=== PATIENT | female | born 1940 | race Caucasian/White ===

== ENCOUNTER 2017-09-23 08:22 | Inpatient (IN) | payer MEDICARE, MEDICAID ==
[~2017-09-23] VITALS: Ht 162.6 cm; Wt 98.5 kg
[~2017-09-23 08:22] MED LIST: ACET325T14 PO; ASPI-496 PO; ASPI325T17 PO; ATOR10TA PO; BIMA2.5D EACHEYE; BISA10SU2 PR; CALC1TAB26 PO; CELE200C PO; CITA20TA9 PO; DOCU100C33 PO; DORZ10DR7 EACHEYE; FURO-93 PO; FURO20TA3 PO; HYDR-3237 PO; IBUP-1484 PO; MAGN400O7 PO; OMEG1CAP23 PO; OMEP-110 PO; OXYC-302 PO; POTA10TA PO; POTA10TA11 PO; SENN1TAB94 PO; VIT1TABL32 PO
[2017-09-23] MEDS ORDERED: ACET650S21 PO (08:52)
[2017-09-23 09:55] LABS: MEAN CORPUSCULAR HEMOGLOBIN 24.1 pg (27.0-34.8); MEAN CORPUSCULAR HGB CONC 30.6 g/dL (32.4-35.8); MEAN CORPUSCULAR VOLUME 78.9 fL (80-100); MEAN PLATELET VOLUME 8.9 fL (7.4-10.4); PLATELET COUNT 215 x10^3/uL (130-400); RED BLOOD COUNT 4.84 x10^6/uL (3.82-5.3); RED CELL DISTRIBUTION WIDTH 18.6 % (9.6-15.2)
[2017-09-23 09:56] LABS: ALANINE AMINOTRANSFERASE 14 U/L (12-78); ALBUMIN 3.1 g/dL (3.4-5.0); ANION GAP 3 mmol/L (5-15); CALCIUM 8.7 mg/dL (8.5-10.1); CHLORIDE 104 mmol/L (98-107); CREATININE 0.77 mg/dL (0.55-1.02)
[2017-09-23 09:59] LABS: ALKALINE PHOSPHATASE 79 U/L (45-117); BILIRUBIN,TOTAL 0.6 mg/dL (0.2-1.0); TOTAL PROTEIN 6.4 g/dL (6.4-8.2)
[2017-09-23 10:12] LABS: BASOPHILS # (AUTO) 0.03 x10^3/uL (0-0.1); BASOPHILS % (AUTO) 0 % (0-1); EOSINOPHILS # (AUTO) 0.11 x10^3/uL (0-0.4); EOSINOPHILS % (AUTO) 2 % (1-7); LYMPHOCYTES # (AUTO) 1.57 x10^3/uL (1-3.4); LYMPHOCYTES % (AUTO) 22 % (22-44); MD SCAN; MONOCYTES # (AUTO) 0.86 x10^3/uL (0.2-0.8); MONOCYTES % (AUTO) 12 % (2-9); NEUTROPHILS # (AUTO) 4.64 x10^3/uL (1.8-6.8); NEUTROPHILS % (AUTO) 65 % (42-75)
[2017-09-23 10:17] LABS: CULTURE INDICATED? YES; MICROSCOPIC INDICATED
[2017-09-23] MEDS ORDERED: CEFTRIAXONE PMX 1GM/50ML 50 ML IVPB ONE (10:30)
[2017-09-23] MEDS ORDERED: CEFTRIAXONE PMX 1GM/50ML 50 ML ONE (10:52)
[2017-09-23 11:50] VITALS: BP 138/84
[2017-09-23] MEDS ORDERED: LABETALOL 5MG/ML, 20ML IVPush PRN (13:00)
[2017-09-23] MEDS ORDERED: ACETAMINOPHEN 325 MG TABLET PO PRN (13:00)
[2017-09-23] MEDS ORDERED: BISACODYL 10 MG SUPP PR PRN (13:00)
[2017-09-23] MEDS ORDERED: SODIUM CHLORIDE 0.9% 1,000 ML IV SCH (13:00)
[2017-09-23] MEDS ORDERED: ONDANSETRON 2MG/ML, 2ML IVPush PRN (13:00)
[2017-09-23] MEDS ORDERED: DOCUSATE 100 MG CAPSULE PO PRN (13:00)
[2017-09-23] MEDS ORDERED: POLYETHYLENE GLYCOL 17 GM PACKET PO PRN (13:00)
[2017-09-23] MEDS ORDERED: GUAIFENESIN/DM 200-20MG, 10ML UDC PO PRN (13:00)
[2017-09-23] MEDS ORDERED: ENALAPRILAT 1.25 MG/ML, 2ML IVPush PRN (13:00)
[2017-09-23] MEDS: ENOXAPARIN 40 MG/0.4 ML SQ SCH (13:00)
[2017-09-23 13:33] LABS: HEMOGLOBIN A1C 6.7 % (4.2-6.3)
[2017-09-23 14:24] VITALS: BP 113/71
[2017-09-23] MEDS: CEFTRIAXONE PMX 1GM/50ML 50 ML IV SCH (15:09)
[2017-09-23] MEDS ORDERED: ALBUTEROL/IPRATROPIUM 2.5MG/0.5MG, 3 ML NPPB PRN (16:30)
[2017-09-23] MEDS: AZITHROMYCIN 500 MG in SODIUM CHLORIDE 0.9% 250 ML IV SCH (16:40)
[2017-09-23 18:51] VITALS: BP 99/64
[2017-09-24 00:44] VITALS: BP 110/73
[2017-09-24 05:36] LABS: INTERNATIONAL NORMALIZED RATIO 1.13 (0.93-1.1); PROTHROMBIN TIME 11.6 Seconds (9.6-11.5)
[2017-09-24 06:00] LABS: MEAN CORPUSCULAR HEMOGLOBIN 24.2 pg (27.0-34.8); MEAN CORPUSCULAR HGB CONC 30.6 g/dL (32.4-35.8); MEAN CORPUSCULAR VOLUME 79.2 fL (80-100); MEAN PLATELET VOLUME 9.1 fL (7.4-10.4); PLATELET COUNT 195 x10^3/uL (130-400); RED BLOOD COUNT 4.77 x10^6/uL (3.82-5.3); RED CELL DISTRIBUTION WIDTH 18.9 % (9.6-15.2)
[2017-09-24 06:20] LABS: CHLORIDE 105 mmol/L (98-107)
[2017-09-24 06:35] LABS: ALANINE AMINOTRANSFERASE 16 U/L (12-78); ALBUMIN 2.8 g/dL (3.4-5.0); ALKALINE PHOSPHATASE 69 U/L (45-117); ANION GAP 4 mmol/L (5-15); BILIRUBIN,TOTAL 0.5 mg/dL (0.2-1.0); CREATININE 0.52 mg/dL (0.55-1.02)
[2017-09-24 06:48] LABS: BASOPHILS # (AUTO) 0.03 x10^3/uL (0-0.1); BASOPHILS % (AUTO) 1 % (0-1); EOSINOPHILS # (AUTO) 0.19 x10^3/uL (0-0.4); EOSINOPHILS % (AUTO) 3 % (1-7); LYMPHOCYTES # (AUTO) 1.79 x10^3/uL (1-3.4); LYMPHOCYTES % (AUTO) 26 % (22-44); MD MORPH REVIEW ONLY; MONOCYTES # (AUTO) 0.71 x10^3/uL (0.2-0.8); MONOCYTES % (AUTO) 10 % (2-9); NEUTROPHILS # (AUTO) 4.29 x10^3/uL (1.8-6.8); NEUTROPHILS % (AUTO) 61 % (42-75)
[2017-09-24 06:50] LABS: ANISOCYTOSIS 1+; HYPOCHROMIA 1+; MICROCYTOSIS 1+; OVALOCYTES 1+
[2017-09-24 06:51] LABS: <PLATELET ESTIMATE> ADEQUATE; LARGE PLATELETS 1+
[2017-09-24 07:18] VITALS: BP 107/69
[2017-09-24] MEDS: SODIUM CHLORIDE 0.9% 1,000 ML IV SCH (08:30)
[2017-09-24 12:42] VITALS: BP 121/74
[2017-09-24] MEDS: ENOXAPARIN 40 MG/0.4 ML SQ SCH (13:00)
[2017-09-24] MEDS: CEFTRIAXONE PMX 1GM/50ML 50 ML IV SCH (13:41)
[2017-09-24] MEDS: METOPROLOL TARTRATE 25 MG TABLET PO SCH (18:00)
[2017-09-24] MEDS: AZITHROMYCIN 500 MG in SODIUM CHLORIDE 0.9% 250 ML IV SCH (18:56)
[2017-09-24 20:00] VITALS: BP 112/67
[2017-09-25] MEDS ORDERED: DIPHENHYDRAMINE 50 MG/ML, 1ML IVPush ONE (00:30)
[2017-09-25] MEDS: SODIUM CHLORIDE 0.9% 1,000 ML IV SCH (00:44)
[2017-09-25 00:49] VITALS: BP 114/73
[2017-09-25 04:52] LABS: ANION GAP 3 mmol/L (5-15); CALCIUM 8.1 mg/dL (8.5-10.1); CHLORIDE 107 mmol/L (98-107); CREATININE 0.49 mg/dL (0.55-1.02)
[2017-09-25] MEDS: ASPIRIN 81 MG TABLET EC PO SCH (05:48)
[2017-09-25] MEDS: METOPROLOL TARTRATE 25 MG TABLET PO SCH ×2 (05:49→17:37)
[2017-09-25 07:47] VITALS: BP 135/75
[2017-09-25 09:26] LABS: THYROID STIMULATING HORMONE 0.197 mIU/L (0.358-3.740)
[2017-09-25 09:37] LABS: FOLATE LEVEL > 20.0 ng/mL (3.1-17.5)
[2017-09-25] MEDS: CEFTRIAXONE PMX 1GM/50ML 50 ML IV SCH (13:27)
[2017-09-25 13:31] VITALS: BP 110/59
[2017-09-25] MEDS: ENOXAPARIN 40 MG/0.4 ML SQ SCH (13:45)
[2017-09-25] MEDS: AZITHROMYCIN 500 MG in SODIUM CHLORIDE 0.9% 250 ML IV SCH (18:43)
[2017-09-25 20:00] VITALS: BP 114/75
[2017-09-26 01:24] VITALS: BP 126/78
[2017-09-26] MEDS: ASPIRIN 81 MG TABLET EC PO SCH (05:35)
[2017-09-26] MEDS: METOPROLOL TARTRATE 25 MG TABLET PO SCH ×2 (05:35→18:00)
[2017-09-26 06:46] LABS: ANION GAP 3 mmol/L (5-15); CALCIUM 8.7 mg/dL (8.5-10.1); CHLORIDE 106 mmol/L (98-107); CREATININE 0.45 mg/dL (0.55-1.02)
[2017-09-26 07:14] VITALS: BP 129/88
[2017-09-26 13:13] VITALS: BP 130/77
[2017-09-26] MEDS: ENOXAPARIN 40 MG/0.4 ML SQ SCH (14:02)
[2017-09-26] MEDS: CEFTRIAXONE PMX 1GM/50ML 50 ML IV SCH (15:10)
[2017-09-26] MEDS: AZITHROMYCIN 500 MG in SODIUM CHLORIDE 0.9% 250 ML IV SCH (18:11)
[2017-09-26 20:00] VITALS: BP 125/63
[2017-09-27 02:00] VITALS: BP 116/72
[2017-09-27 07:40] VITALS: BP 121/68
[2017-09-27] MEDS: ASPIRIN 81 MG TABLET EC PO SCH (09:00)
[2017-09-27] MEDS: METOPROLOL TARTRATE 25 MG TABLET PO SCH ×2 (09:00→18:00)
[2017-09-27 13:20] VITALS: BP 123/82
[2017-09-27] MEDS: ENOXAPARIN 40 MG/0.4 ML SQ SCH (17:03)
[2017-09-27] MEDS: CEFTRIAXONE PMX 1GM/50ML 50 ML IV SCH (17:03)
[2017-09-27] MEDS: AZITHROMYCIN 500 MG in SODIUM CHLORIDE 0.9% 250 ML IV SCH (18:46)
[2017-09-27] MEDS ORDERED: METOPROLOL 1 MG/ML, 5ML IVPush ONE (19:00)
[2017-09-27 20:00] VITALS: BP 116/77
[2017-09-28 02:00] VITALS: BP 128/83
[2017-09-28] MEDS: ASPIRIN 81 MG TABLET EC PO SCH (05:55)
[2017-09-28] MEDS: METOPROLOL TARTRATE 25 MG TABLET PO SCH ×2 (05:55→18:00)
[2017-09-28 07:36] VITALS: BP 132/82
[2017-09-28] MEDS ORDERED: BENZOCAINE 20% SPRAY 0.5ML ONE (13:51)
[2017-09-28] MEDS ORDERED: LIDOCAINE GEL 2%, 5ML ONE (13:51)
[2017-09-28] MEDS: ENOXAPARIN 40 MG/0.4 ML SQ SCH (14:08)
[2017-09-28] MEDS ORDERED: LORazepam 2 MG/ML, 1ML IVPush ONE (17:00)
[2017-09-28 19:07] VITALS: BP 146/84
[2017-09-28] MEDS: CEFTRIAXONE PMX 1GM/50ML 50 ML IV SCH (20:44)
[2017-09-28] MEDS: ATORVASTATIN 10 MG TABLET PO/NG SCH (20:44)
[2017-09-29 00:55] VITALS: BP 147/94
[2017-09-29 05:15] LABS: MEAN CORPUSCULAR HEMOGLOBIN 24.1 pg (27.0-34.8); MEAN CORPUSCULAR HGB CONC 30.4 g/dL (32.4-35.8); MEAN CORPUSCULAR VOLUME 79.3 fL (80-100); PLATELET COUNT 165 x10^3/uL (130-400); RED BLOOD COUNT 4.76 x10^6/uL (3.82-5.3); RED CELL DISTRIBUTION WIDTH 18.6 % (9.6-15.2)
[2017-09-29] MEDS: ASPIRIN 81 MG TABLET EC PO SCH (05:17)
[2017-09-29] MEDS: METOPROLOL TARTRATE 25 MG TABLET PO SCH ×2 (05:17→17:43)
[2017-09-29 05:22] LABS: ANION GAP 0 mmol/L (5-15); CALCIUM 9.1 mg/dL (8.5-10.1); CHLORIDE 106 mmol/L (98-107); CREATININE 0.38 mg/dL (0.55-1.02)
[2017-09-29 06:14] LABS: BASOPHILS # (AUTO) 0.04 x10^3/uL (0-0.1); BASOPHILS % (AUTO) 1 % (0-1); EOSINOPHILS # (AUTO) 0.03 x10^3/uL (0-0.4); EOSINOPHILS % (AUTO) 1 % (1-7); LYMPHOCYTES # (AUTO) 1.25 x10^3/uL (1-3.4); LYMPHOCYTES % (AUTO) 20 % (22-44); MD MORPH REVIEW ONLY; MONOCYTES # (AUTO) 0.78 x10^3/uL (0.2-0.8); MONOCYTES % (AUTO) 13 % (2-9); NEUTROPHILS # (AUTO) 4.09 x10^3/uL (1.8-6.8); NEUTROPHILS % (AUTO) 66 % (42-75)
[2017-09-29 06:15] LABS: ANISOCYTOSIS 1+; HYPOCHROMIA 1+; MICROCYTOSIS 1+; OVALOCYTES 1+
[2017-09-29 06:16] LABS: <PLATELET ESTIMATE> ADEQUATE; LARGE PLATELETS 1+
[2017-09-29 08:58] VITALS: BP 140/89
[2017-09-29 10:25] VITALS: BP 141/89
[2017-09-29] MEDS: ENOXAPARIN 40 MG/0.4 ML SQ SCH (13:49)
[2017-09-29 14:03] VITALS: BP 143/91
[2017-09-29 19:42] VITALS: BP 131/91
[2017-09-29] MEDS: CEFTRIAXONE PMX 1GM/50ML 50 ML IV SCH (21:07)
[2017-09-29] MEDS: ATORVASTATIN 10 MG TABLET PO/NG SCH (21:13)
[2017-09-30 02:15] VITALS: BP 133/84
[2017-09-30 04:56] LABS: ANION GAP 4 mmol/L (5-15); CALCIUM 8.9 mg/dL (8.5-10.1); CHLORIDE 104 mmol/L (98-107)
[2017-09-30 04:57] LABS: CREATININE 0.28 mg/dL (0.55-1.02); MEAN CORPUSCULAR HEMOGLOBIN 23.9 pg (27.0-34.8); MEAN CORPUSCULAR VOLUME 80.2 fL (80-100); MEAN PLATELET VOLUME 9.3 fL (7.4-10.4); PLATELET COUNT 159 x10^3/uL (130-400); RED BLOOD COUNT 4.64 x10^6/uL (3.82-5.3); RED CELL DISTRIBUTION WIDTH 19.3 % (9.6-15.2)
[2017-09-30 05:08] LABS: MEAN CORPUSCULAR HGB CONC 29.8 g/dL (32.4-35.8)
[2017-09-30] MEDS: ASPIRIN 81 MG TABLET EC PO SCH (05:13)
[2017-09-30] MEDS: METOPROLOL TARTRATE 25 MG TABLET PO SCH ×3 (05:13→23:05)
[2017-09-30 06:01] LABS: BASOPHILS # (AUTO) 0.02 x10^3/uL (0-0.1); BASOPHILS % (AUTO) 0 % (0-1); EOSINOPHILS # (AUTO) 0.09 x10^3/uL (0-0.4); EOSINOPHILS % (AUTO) 1 % (1-7); LYMPHOCYTES # (AUTO) 1.39 x10^3/uL (1-3.4); LYMPHOCYTES % (AUTO) 21 % (22-44); MD SCAN; MONOCYTES # (AUTO) 0.87 x10^3/uL (0.2-0.8); MONOCYTES % (AUTO) 13 % (2-9); NEUTROPHILS # (AUTO) 4.19 x10^3/uL (1.8-6.8); NEUTROPHILS % (AUTO) 64 % (42-75)
[2017-09-30 06:48] VITALS: BP 126/84
[2017-09-30 12:40] VITALS: BP 133/89
[2017-09-30] MEDS: ENOXAPARIN 40 MG/0.4 ML SQ SCH (14:39)
[2017-09-30 20:35] VITALS: BP 115/74
[2017-09-30] MEDS: CEFTRIAXONE PMX 1GM/50ML 50 ML IV SCH (21:15)
[2017-09-30 23:02] VITALS: BP 141/90
[2017-09-30] MEDS: ATORVASTATIN 10 MG TABLET PO/NG SCH (23:05)
[2017-10-01 03:31] VITALS: BP 107/72
[2017-10-01 05:06] LABS: ANION GAP 3 mmol/L (5-15); CALCIUM 9.1 mg/dL (8.5-10.1); CHLORIDE 103 mmol/L (98-107); CREATININE 0.31 mg/dL (0.55-1.02)
[2017-10-01] MEDS: ASPIRIN 81 MG TABLET EC PO SCH (06:18)
[2017-10-01] MEDS: METOPROLOL TARTRATE 25 MG TABLET PO SCH ×3 (06:19→21:31)
[2017-10-01 07:10] VITALS: BP 114/77
[2017-10-01] MEDS: ALBUTEROL/IPRATROPIUM 2.5MG/0.5MG, 3 ML IPPB SCH ×4 (07:44→21:05)
[2017-10-01] MEDS ORDERED: FUROSEMIDE 40 MG/4 ML IV ONE (09:00)
[2017-10-01] MEDS ORDERED: FUROSEMIDE 20 MG/2 ML IV ONE (09:30)
[2017-10-01 14:30] VITALS: BP 141/79
[2017-10-01] MEDS: ENOXAPARIN 40 MG/0.4 ML SQ SCH (14:32)
[2017-10-01 19:08] VITALS: BP 147/84
[2017-10-01 21:28] VITALS: BP 142/96
[2017-10-01] MEDS: CEFTRIAXONE PMX 1GM/50ML 50 ML IV SCH (21:30)
[2017-10-01] MEDS: ATORVASTATIN 10 MG TABLET PO/NG SCH (21:30)
[2017-10-02 02:20] VITALS: BP 127/80
[2017-10-02 05:16] LABS: CALCIUM 9.3 mg/dL (8.5-10.1); CHLORIDE 99 mmol/L (98-107); CREATININE 0.33 mg/dL (0.55-1.02)
[2017-10-02] MEDS: ASPIRIN 81 MG TABLET CHEW PO SCH (05:23)
[2017-10-02 05:34] LABS: ANION GAP 2 mmol/L (5-15)
[2017-10-02 06:35] VITALS: BP 152/98
[2017-10-02 06:39] LABS: MEAN CORPUSCULAR HEMOGLOBIN 24.4 pg (27.0-34.8); MEAN CORPUSCULAR HGB CONC 30.7 g/dL (32.4-35.8); MEAN CORPUSCULAR VOLUME 79.3 fL (80-100); MEAN PLATELET VOLUME 9.7 fL (7.4-10.4); PLATELET COUNT 156 x10^3/uL (130-400); RED BLOOD COUNT 5.17 x10^6/uL (3.82-5.3); RED CELL DISTRIBUTION WIDTH 18.7 % (9.6-15.2)
[2017-10-02 06:42] LABS: BASOPHILS # (AUTO) 0.04 x10^3/uL (0-0.1); BASOPHILS % (AUTO) 1 % (0-1); EOSINOPHILS # (AUTO) 0.13 x10^3/uL (0-0.4); EOSINOPHILS % (AUTO) 2 % (1-7); LYMPHOCYTES % (AUTO) 18 % (22-44); MD SCAN; MONOCYTES # (AUTO) 0.77 x10^3/uL (0.2-0.8); MONOCYTES % (AUTO) 10 % (2-9); NEUTROPHILS # (AUTO) 5.67 x10^3/uL (1.8-6.8); NEUTROPHILS % (AUTO) 71 % (42-75)
[2017-10-02] MEDS: ALBUTEROL/IPRATROPIUM 2.5MG/0.5MG, 3 ML IPPB SCH ×4 (07:20→19:30)
[2017-10-02] MEDS: METOPROLOL TARTRATE 25 MG TABLET PO SCH ×2 (08:26→21:13)
[2017-10-02 12:00] VITALS: BP 140/87
[2017-10-02] MEDS: ENOXAPARIN 40 MG/0.4 ML SQ SCH (14:52)
[2017-10-02 18:46] VITALS: BP 167/113
[2017-10-02 21:08] VITALS: BP 147/87
[2017-10-02] MEDS: CEFTRIAXONE PMX 1GM/50ML 50 ML IV SCH (21:13)
[2017-10-02] MEDS: ATORVASTATIN 10 MG TABLET PO/NG SCH (21:13)
[2017-10-03 00:26] VITALS: BP 116/73
[2017-10-03 05:39] LABS: BASOPHILS # (AUTO) 0.03 x10^3/uL (0-0.1); BASOPHILS % (AUTO) 1 % (0-1); EOSINOPHILS # (AUTO) 0.08 x10^3/uL (0-0.4); EOSINOPHILS % (AUTO) 1 % (1-7); LYMPHOCYTES # (AUTO) 1.05 x10^3/uL (1-3.4); LYMPHOCYTES % (AUTO) 16 % (22-44); MD NO; MEAN CORPUSCULAR HEMOGLOBIN 24.4 pg (27.0-34.8); MEAN CORPUSCULAR HGB CONC 30.8 g/dL (32.4-35.8); MEAN CORPUSCULAR VOLUME 79.1 fL (80-100); MEAN PLATELET VOLUME 10.1 fL (7.4-10.4); MONOCYTES # (AUTO) 0.62 x10^3/uL (0.2-0.8); MONOCYTES % (AUTO) 9 % (2-9); NEUTROPHILS # (AUTO) 4.87 x10^3/uL (1.8-6.8); NEUTROPHILS % (AUTO) 73 % (42-75); PLATELET COUNT 142 x10^3/uL (130-400); RED BLOOD COUNT 4.59 x10^6/uL (3.82-5.3); RED CELL DISTRIBUTION WIDTH 19.3 % (9.6-15.2)
[2017-10-03] MEDS: ASPIRIN 81 MG TABLET CHEW PO SCH (05:43)
[2017-10-03 05:52] LABS: ANION GAP 4 mmol/L (5-15); CALCIUM 8.9 mg/dL (8.5-10.1); CHLORIDE 100 mmol/L (98-107); CREATININE 0.31 mg/dL (0.55-1.02)
[2017-10-03] MEDS: ALBUTEROL/IPRATROPIUM 2.5MG/0.5MG, 3 ML IPPB SCH ×4 (07:25→19:52)
[2017-10-03 08:00] VITALS: BP 95/65
[2017-10-03] MEDS: METOPROLOL TARTRATE 50 MG TABLET PO SCH ×2 (08:53→21:43)
[2017-10-03 13:13] VITALS: BP 119/82
[2017-10-03] MEDS: ENOXAPARIN 40 MG/0.4 ML SQ SCH (14:34)
[2017-10-03 21:18] VITALS: BP 122/78
[2017-10-03] MEDS: CEFTRIAXONE PMX 1GM/50ML 50 ML IV SCH (21:37)
[2017-10-03] MEDS: ATORVASTATIN 10 MG TABLET PO/NG SCH (21:43)
[2017-10-04 02:27] VITALS: BP 147/79
[2017-10-04 05:45] LABS: CHLORIDE 100 mmol/L (98-107)
[2017-10-04] MEDS: ASPIRIN 81 MG TABLET CHEW PO SCH (06:03)
[2017-10-04 06:12] LABS: ANION GAP 5 mmol/L (5-15); CALCIUM 9.3 mg/dL (8.5-10.1); CREATININE 0.35 mg/dL (0.55-1.02)
[2017-10-04] MEDS: ALBUTEROL/IPRATROPIUM 2.5MG/0.5MG, 3 ML IPPB SCH ×4 (07:17→19:30)
[2017-10-04 08:02] VITALS: BP 148/94
[2017-10-04] MEDS: METOPROLOL TARTRATE 50 MG TABLET PO SCH ×2 (08:52→21:22)
[2017-10-04 14:43] VITALS: BP 117/80
[2017-10-04] MEDS: ENOXAPARIN 40 MG/0.4 ML SQ SCH (14:58)
[2017-10-04 20:00] VITALS: BP 128/86
[2017-10-04] MEDS: ATORVASTATIN 10 MG TABLET PO/NG SCH (21:22)
[2017-10-05 01:54] VITALS: BP 130/85
[2017-10-05 05:02] LABS: ANION GAP 1 mmol/L (5-15); CALCIUM 8.9 mg/dL (8.5-10.1); CHLORIDE 102 mmol/L (98-107)
[2017-10-05 05:03] LABS: CREATININE 0.35 mg/dL (0.55-1.02)
[2017-10-05] MEDS: ALBUTEROL/IPRATROPIUM 2.5MG/0.5MG, 3 ML IPPB SCH ×4 (07:00→18:54)
[2017-10-05 07:50] VITALS: BP 143/94
[2017-10-05] MEDS: ASPIRIN 81 MG TABLET CHEW PO SCH (09:42)
[2017-10-05] MEDS: METOPROLOL TARTRATE 50 MG TABLET PO SCH ×2 (09:42→21:08)
[2017-10-05 13:39] VITALS: BP 142/86
[2017-10-05] MEDS: ENOXAPARIN 40 MG/0.4 ML SQ SCH (15:35)
[2017-10-05 20:22] VITALS: BP 141/91
[2017-10-05] MEDS: ATORVASTATIN 10 MG TABLET PO/NG SCH (21:09)
[2017-10-06 02:07] VITALS: BP 148/95
[2017-10-06 05:20] LABS: ANION GAP 2 mmol/L (5-15); CALCIUM 8.8 mg/dL (8.5-10.1); CHLORIDE 103 mmol/L (98-107); CREATININE 0.34 mg/dL (0.55-1.02)
[2017-10-06] MEDS: ASPIRIN 81 MG TABLET CHEW PO SCH (06:08)
[2017-10-06] MEDS: ALBUTEROL/IPRATROPIUM 2.5MG/0.5MG, 3 ML IPPB SCH ×4 (07:00→19:46)
[2017-10-06 07:42] VITALS: BP 167/94
[2017-10-06] MEDS: METOPROLOL TARTRATE 50 MG TABLET PO SCH ×2 (09:30→21:02)
[2017-10-06] MEDS: DEXTROSE 5% 1,000 ML IV SCH ×2 (09:31→22:20)
[2017-10-06] MEDS: ENOXAPARIN 40 MG/0.4 ML SQ SCH (13:39)
[2017-10-06 14:29] VITALS: BP 122/77
[2017-10-06 19:59] VITALS: BP 136/89
[2017-10-06] MEDS: ATORVASTATIN 10 MG TABLET PO/NG SCH (21:02)
[2017-10-07 02:22] VITALS: BP 126/85
[2017-10-07 05:44] LABS: ANION GAP 3 mmol/L (5-15); CALCIUM 8.8 mg/dL (8.5-10.1); CHLORIDE 100 mmol/L (98-107); CREATININE 0.31 mg/dL (0.55-1.02)
[2017-10-07] MEDS: ASPIRIN 81 MG TABLET CHEW PO SCH (05:48)
[2017-10-07] MEDS: ALBUTEROL/IPRATROPIUM 2.5MG/0.5MG, 3 ML IPPB SCH (07:00)
[2017-10-07 08:44] VITALS: BP 103/72
[2017-10-07] MEDS: METOPROLOL TARTRATE 50 MG TABLET PO SCH ×3 (08:57→21:00)
[2017-10-07] MEDS: DEXTROSE 5% 1,000 ML IV SCH (11:55)
[2017-10-07 13:06] VITALS: BP 109/74
[2017-10-07] MEDS: ENOXAPARIN 40 MG/0.4 ML SQ SCH (14:37)
[2017-10-07] MEDS: ATORVASTATIN 10 MG TABLET PO/NG SCH ×2 (20:30→21:00)
[2017-10-07 21:18] VITALS: BP 140/96
[2017-10-08] MEDS: DEXTROSE 5% 1,000 ML IV SCH (00:30)
[2017-10-08 02:15] VITALS: BP 135/84
[2017-10-08 03:02] VITALS: BP 144/98
[2017-10-08] MEDS: ASPIRIN 81 MG TABLET CHEW PO SCH (04:48)
[2017-10-08 04:59] LABS: BASOPHILS # (AUTO) 0.03 x10^3/uL (0-0.1); BASOPHILS % (AUTO) 1 % (0-1); EOSINOPHILS # (AUTO) 0.16 x10^3/uL (0-0.4); EOSINOPHILS % (AUTO) 3 % (1-7); LYMPHOCYTES # (AUTO) 1.36 x10^3/uL (1-3.4); LYMPHOCYTES % (AUTO) 22 % (22-44); MD NO; MEAN CORPUSCULAR HEMOGLOBIN 24.8 pg (27.0-34.8); MEAN CORPUSCULAR HGB CONC 31.3 g/dL (32.4-35.8); MEAN CORPUSCULAR VOLUME 79.2 fL (80-100); MEAN PLATELET VOLUME 10.1 fL (7.4-10.4); MONOCYTES # (AUTO) 0.73 x10^3/uL (0.2-0.8); MONOCYTES % (AUTO) 12 % (2-9); NEUTROPHILS # (AUTO) 3.94 x10^3/uL (1.8-6.8); NEUTROPHILS % (AUTO) 63 % (42-75); PLATELET COUNT 136 x10^3/uL (130-400); RED BLOOD COUNT 4.58 x10^6/uL (3.82-5.3)
[2017-10-08 05:08] LABS: ANION GAP 3 mmol/L (5-15); CALCIUM 8.3 mg/dL (8.5-10.1); CHLORIDE 100 mmol/L (98-107); CREATININE 0.28 mg/dL (0.55-1.02)
[2017-10-08] MEDS ORDERED: ALBUTEROL/IPRATROPIUM 2.5MG/0.5MG, 3 ML IPPB PRN (07:00)
[2017-10-08 08:00] VITALS: BP 131/82
[2017-10-08] MEDS: METOPROLOL TARTRATE 50 MG TABLET PO SCH (09:35)
[2017-10-08] MEDS ORDERED: METO50TA82 PO (11:42)
[2017-10-08] MEDS ORDERED: ASPI-515 PO (11:42)
== END 2017-10-08 13:25 | DRG 64 ==
LOC: ED 08:27 → EDIP 10:32 → 3NE 11:33 → 4EST 09-26 17:55
PROVIDERS: ADMIT Internal Medicine; ATTEND Family Medicine
PROC: 0T9B70Z Drainage of Bladder with Drainage Device, Via Natural or Artificial Opening (ICD-10-PCS; principal; 2017-09-23)
DX: I63.9 Cerebral infarction, unspecified (principal); J69.0 Pneumonitis due to inhalation of food and vomit; G93.41 Metabolic encephalopathy; N17.9 Acute kidney failure, unspecified; J15.9 Unspecified bacterial pneumonia; J96.01 Acute respiratory failure with hypoxia; J96.02 Acute respiratory failure with hypercapnia; E44.0 Moderate protein-calorie malnutrition; E87.0 Hyperosmolality and hypernatremia; E87.2 Acidosis; D68.69 Other thrombophilia; I50.32 Chronic diastolic (congestive) heart failure; Z68.41 Body mass index [BMI] 40.0-44.9, adult; R13.10 Dysphagia, unspecified; I48.2 Chronic atrial fibrillation; E66.01 Morbid (severe) obesity due to excess calories; N30.90 Cystitis, unspecified without hematuria; I48.91 Unspecified atrial fibrillation; E83.39 Other disorders of phosphorus metabolism; D64.9 Anemia, unspecified; H40.9 Unspecified glaucoma; K21.9 Gastro-esophageal reflux disease without esophagitis; M19.90 Unspecified osteoarthritis, unspecified site; K80.20 Calculus of gallbladder without cholecystitis without obstruction; G47.33 Obstructive sleep apnea (adult) (pediatric); I35.8 Other nonrheumatic aortic valve disorders; I45.10 Unspecified right bundle-branch block; K59.00 Constipation, unspecified; Z78.1 Physical restraint status; Z87.442 Personal history of urinary calculi; Z96.651 Presence of right artificial knee joint; Z96.1 Presence of intraocular lens
CPT/HCPCS: 36415; 36600; 70551; 71045; 74018; 74230; 80048; 80053; 81001; 82607; 82746; 82803; 83036; 83605; 83735; 83880; 84100; 84439; 84443; 85025; 85610; 87040; 87086; 93005; 93306; 93880; 94640; J0456; J0696; J1650; J7070; J7620; J1200; J1940; J2060; J7030; J7050

== ENCOUNTER 2017-10-11 12:49 | Inpatient (IN) | payer MEDICARE, MEDICAID ==
[~2017-10-11] VITALS: Ht 162.6 cm; Wt 101.5 kg
[~2017-10-11 12:49] MED LIST changes: +ACET650S21 PO; +ASPI-515 PO; +METO50TA82 PO
[2017-10-11] MEDS ORDERED: SODIUM CHLORIDE 0.9% 1,000ML IVBOLUS ONE (13:00)
[2017-10-11] MEDS ORDERED: SODIUM CHLORIDE FLUSH 10ML SYR IVF ONE (13:00)
[2017-10-11] MEDS ORDERED: PLEASE ENTER HEIGHT AND WEIGHT MC SCH (13:30)
[2017-10-11 13:37] LABS: ALBUMIN 3.1 g/dL (3.4-5.0); ANION GAP 5 mmol/L (5-15); CALCIUM 9.5 mg/dL (8.5-10.1); CHLORIDE 102 mmol/L (98-107); CREATININE 0.59 mg/dL (0.55-1.02)
[2017-10-11 13:40] LABS: ANISOCYTOSIS 1+; BASOPHILS # (AUTO) 0.03 x10^3/uL (0-0.1); BASOPHILS % (AUTO) 0 % (0-1); EOSINOPHILS # (AUTO) 0.04 x10^3/uL (0-0.4); EOSINOPHILS % (AUTO) 1 % (1-7); LYMPHOCYTES # (AUTO) 1.52 x10^3/uL (1-3.4); LYMPHOCYTES % (AUTO) 18 % (22-44); MD MORPH REVIEW ONLY; MEAN CORPUSCULAR HEMOGLOBIN 24.7 pg (27.0-34.8); MEAN CORPUSCULAR VOLUME 79.7 fL (80-100); MEAN PLATELET VOLUME 9.6 fL (7.4-10.4); MONOCYTES # (AUTO) 0.91 x10^3/uL (0.2-0.8); MONOCYTES % (AUTO) 11 % (2-9); NEUTROPHILS # (AUTO) 6.03 x10^3/uL (1.8-6.8); NEUTROPHILS % (AUTO) 71 % (42-75); PLATELET COUNT 267 x10^3/uL (130-400); POLYCHROMASIA 1+; RED BLOOD COUNT 5.45 x10^6/uL (3.82-5.3); RED CELL DISTRIBUTION WIDTH 23.4 % (9.6-15.2)
[2017-10-11 13:41] LABS: MICROCYTOSIS 1+
[2017-10-11 13:42] LABS: <PLATELET ESTIMATE> ADEQUATE; <PLT MORPHOLOGY> NORMAL PLT MORPH; OVALOCYTES 1+
[2017-10-11 13:48] LABS: MICROSCOPIC INDICATED
[2017-10-11 13:52] LABS: CULTURE INDICATED? YES
[2017-10-11] MEDS ORDERED: ASPIRIN 81 MG TABLET CHEW PO ONE (14:30)
[2017-10-11] MEDS ORDERED: ASPIRIN 81 MG TABLET CHEW ONE (14:31)
[2017-10-11] MEDS ORDERED: CEFTRIAXONE PMX 1GM/50ML 50 ML IV ONE (15:00)
[2017-10-11] MEDS ORDERED: FUROSEMIDE 20 MG/2 ML IV ONE (15:00)
[2017-10-11] MEDS ORDERED: AZITHROMYCIN 500 MG in SODIUM CHLORIDE 0.9% 250 ML IV ONE (15:00)
[2017-10-11] MEDS ORDERED: CEFTRIAXONE PMX 1GM/50ML 50 ML ONE (15:06)
[2017-10-11] MEDS ORDERED: FUROSEMIDE 40 MG/4 ML ONE (15:06)
[2017-10-11] MEDS ORDERED: SODIUM CHLORIDE 0.9% 1,000 ML IV SCH (15:13)
[2017-10-11] MEDS ORDERED: MAGNESIUM HYDROXIDE 8%, 30ML UDC PO PRN (15:30)
[2017-10-11] MEDS ORDERED: ONDANSETRON 2MG/ML, 2ML IVPush PRN (15:30)
[2017-10-11] MEDS ORDERED: ACETAMINOPHEN 325 MG TABLET PO PRN (15:30)
[2017-10-11] MEDS ORDERED: BISACODYL 10 MG SUPP PR PRN (15:30)
[2017-10-11] MEDS ORDERED: LABETALOL 5MG/ML, 20ML IVPush PRN (15:30)
[2017-10-11] MEDS ORDERED: CEFTRIAXONE PMX 1GM/50ML 50 ML IV SCH (16:00)
[2017-10-11] MEDS: OMEGA-3/FISH OIL CAPSULE PO SCH (16:00)
[2017-10-11] MEDS: CEFTRIAXONE 1,000 MG in SODIUM CHLORIDE 0.9% 50 ML IV SCH (16:00)
[2017-10-11 16:27] VITALS: BP 108/66
[2017-10-11] MEDS ORDERED: LEVETIRACETAM 750 MG in SODIUM CHLORIDE 0.9% 100 ML IV ONE (17:30)
[2017-10-11] MEDS: SODIUM CHLORIDE 0.9% 1,000 ML IV SCH (17:58)
[2017-10-11 19:22] VITALS: BP 105/66
[2017-10-11] MEDS: ENOXAPARIN 40 MG/0.4 ML SQ SCH (20:40)
[2017-10-11] MEDS: METOPROLOL TARTRATE 50 MG TABLET PO SCH (20:42)
[2017-10-11] MEDS: ATORVASTATIN 10 MG TABLET PO SCH (20:42)
[2017-10-11] MEDS: MULTIVITAMINS/MINERALS TABLET PO SCH (20:43)
[2017-10-11] MEDS ORDERED: TEMPLATE NON-FORMULARY MED. (Dorzolamide Hcl/Timolol Maleat (Dorzolamide-Timolol Eye Drops EACHEYE SCH (21:00)
[2017-10-11] MEDS: TEMPLATE NON-FORMULARY MED. (Bimatoprost (Lumigan) 1 DROP) EACHEYE SCH (22:15)
[2017-10-11] MEDS: TEMPLATE NON-FORMULARY MED. (Dorzolamide Hcl/Timolol Maleat (Dorzolamide-Timolol Eye Drops EACHEYE SCH (22:16)
[2017-10-11 23:47] VITALS: BP 126/86
[2017-10-12] MEDS: ASPIRIN 81 MG TABLET EC PO SCH (04:27)
[2017-10-12 05:46] LABS: ANION GAP 5 mmol/L (5-15); CALCIUM 8.5 mg/dL (8.5-10.1); CHLORIDE 103 mmol/L (98-107); CREATININE 0.42 mg/dL (0.55-1.02)
[2017-10-12 06:02] LABS: BASOPHILS # (AUTO) 0.06 x10^3/uL (0-0.1); BASOPHILS % (AUTO) 1 % (0-1); EOSINOPHILS # (AUTO) 0.11 x10^3/uL (0-0.4); EOSINOPHILS % (AUTO) 2 % (1-7); LYMPHOCYTES # (AUTO) 1.79 x10^3/uL (1-3.4); LYMPHOCYTES % (AUTO) 25 % (22-44); MD NO; MEAN CORPUSCULAR HEMOGLOBIN 25.1 pg (27.0-34.8); MEAN CORPUSCULAR HGB CONC 30.9 g/dL (32.4-35.8); MEAN CORPUSCULAR VOLUME 81.2 fL (80-100); MEAN PLATELET VOLUME 9.7 fL (7.4-10.4); MONOCYTES # (AUTO) 0.82 x10^3/uL (0.2-0.8); MONOCYTES % (AUTO) 12 % (2-9); NEUTROPHILS # (AUTO) 4.39 x10^3/uL (1.8-6.8); NEUTROPHILS % (AUTO) 61 % (42-75); PLATELET COUNT 220 x10^3/uL (130-400); RED BLOOD COUNT 4.83 x10^6/uL (3.82-5.3); RED CELL DISTRIBUTION WIDTH 21.8 % (9.6-15.2)
[2017-10-12 07:14] VITALS: BP 98/62
[2017-10-12] MEDS: METOPROLOL TARTRATE 50 MG TABLET PO SCH ×2 (09:00→21:00)
[2017-10-12] MEDS: TEMPLATE NON-FORMULARY MED. (Dorzolamide Hcl/Timolol Maleat (Dorzolamide-Timolol Eye Drops EACHEYE SCH ×2 (09:00→21:00)
[2017-10-12] MEDS: OMEGA-3/FISH OIL CAPSULE PO SCH (09:00)
[2017-10-12] MEDS: MULTIVITAMINS/MINERALS TABLET PO SCH ×2 (09:00→21:00)
[2017-10-12] MEDS: DOCUSATE 100 MG CAPSULE PO SCH (09:00)
[2017-10-12] MEDS: SODIUM CHLORIDE 0.9% 1,000 ML IV SCH (10:57)
[2017-10-12] MEDS: LEVETIRACETAM 500 MG in SODIUM CHLORIDE 0.9% 100 ML IV SCH ×2 (10:57→21:10)
[2017-10-12 13:25] VITALS: BP 131/84
[2017-10-12] MEDS: ENOXAPARIN 40 MG/0.4 ML SQ SCH (16:38)
[2017-10-12] MEDS: CEFTRIAXONE 1,000 MG in SODIUM CHLORIDE 0.9% 50 ML IV SCH (16:38)
[2017-10-12 20:50] VITALS: BP 131/80
[2017-10-12] MEDS: TEMPLATE NON-FORMULARY MED. (Bimatoprost (Lumigan) 1 DROP) EACHEYE SCH (21:00)
[2017-10-12] MEDS: ATORVASTATIN 10 MG TABLET PO SCH (21:00)
[2017-10-13 00:26] VITALS: BP 155/90
[2017-10-13 05:18] LABS: MEAN CORPUSCULAR HEMOGLOBIN 25.2 pg (27.0-34.8); MEAN CORPUSCULAR HGB CONC 30.8 g/dL (32.4-35.8); MEAN CORPUSCULAR VOLUME 81.7 fL (80-100); MEAN PLATELET VOLUME 8.9 fL (7.4-10.4); PLATELET COUNT 213 x10^3/uL (130-400); RED BLOOD COUNT 4.58 x10^6/uL (3.82-5.3)
[2017-10-13 05:24] LABS: ANION GAP 4 mmol/L (5-15); CHLORIDE 104 mmol/L (98-107)
[2017-10-13 05:26] LABS: CALCIUM 8.7 mg/dL (8.5-10.1); CREATININE 0.26 mg/dL (0.55-1.02)
[2017-10-13] MEDS: ASPIRIN 81 MG TABLET EC PO SCH (06:00)
[2017-10-13 06:05] LABS: BASOPHILS # (AUTO) 0.02 x10^3/uL (0-0.1); BASOPHILS % (AUTO) 0 % (0-1); EOSINOPHILS # (AUTO) 0.06 x10^3/uL (0-0.4); EOSINOPHILS % (AUTO) 1 % (1-7); LYMPHOCYTES # (AUTO) 1.22 x10^3/uL (1-3.4); LYMPHOCYTES % (AUTO) 21 % (22-44); MD SCAN; MONOCYTES # (AUTO) 0.63 x10^3/uL (0.2-0.8); MONOCYTES % (AUTO) 11 % (2-9); NEUTROPHILS % (AUTO) 66 % (42-75)
[2017-10-13 07:38] VITALS: BP 145/80
[2017-10-13] MEDS: TEMPLATE NON-FORMULARY MED. (Dorzolamide Hcl/Timolol Maleat (Dorzolamide-Timolol Eye Drops EACHEYE SCH ×2 (09:00→21:00)
[2017-10-13] MEDS: OMEGA-3/FISH OIL CAPSULE PO SCH (09:00)
[2017-10-13] MEDS: MULTIVITAMINS/MINERALS TABLET PO SCH ×2 (09:19→21:00)
[2017-10-13] MEDS: DOCUSATE 100 MG CAPSULE PO SCH (09:19)
[2017-10-13] MEDS: LEVETIRACETAM 500 MG in SODIUM CHLORIDE 0.9% 100 ML IV SCH (09:19)
[2017-10-13] MEDS: METOPROLOL TARTRATE 50 MG TABLET PO SCH ×2 (09:20→21:00)
[2017-10-13 13:00] VITALS: BP 141/95
[2017-10-13 14:15] LABS: HCT (SEDRATE) 39.5 % (34.6-47.8)
[2017-10-13 14:26] LABS: C-REACTIVE PROTEIN, QUANT 0.67 mg/dL (0.02-0.49)
[2017-10-13] MEDS: SODIUM CHLORIDE 0.9% 1,000 ML IV SCH (14:33)
[2017-10-13 14:51] LABS: THYROID STIMULATING HORMONE 0.073 mIU/L (0.358-3.740)
[2017-10-13 14:52] LABS: FOLATE LEVEL > 20.0 ng/mL (3.1-17.5)
[2017-10-13] MEDS ORDERED: OMNIPAQUE 350 MG/ML, 100ML BOTTLE ONE (15:53)
[2017-10-13] MEDS: ENOXAPARIN 40 MG/0.4 ML SQ SCH (16:00)
[2017-10-13] MEDS: D5%-0.45NACL+KCL 40MEQ 1,000 ML IV SCH (17:28)
[2017-10-13] MEDS: ATORVASTATIN 10 MG TABLET PO SCH (21:00)
[2017-10-13] MEDS: TEMPLATE NON-FORMULARY MED. (Bimatoprost (Lumigan) 1 DROP) EACHEYE SCH (21:00)
[2017-10-13] MEDS ORDERED: PHARMACY MAY ADJ FOR RENAL FX MC SCH (23:00)
[2017-10-13] MEDS ORDERED: SODIUM CHLORIDE 0.9% 1,000ML IVBOLUS ONE (23:00)
[2017-10-13] MEDS ORDERED: LACTULOSE 20 GM/30 ML UDC NG PRN (23:00)
[2017-10-13] MEDS ORDERED: BISACODYL 10 MG SUPP PR PRN (23:00)
[2017-10-13] MEDS ORDERED: LIDOCAINE-MPF 1%, 2ML ENDO PRN (23:00)
[2017-10-13] MEDS ORDERED: SENNOSIDES 8.8 MG/5 ML ORAL SOL NG PRN (23:00)
[2017-10-13] MEDS ORDERED: SENNA/DOCUSATE TABLET NG PRN (23:00)
[2017-10-13] MEDS: FAMOTIDINE 20 MG/2 ML IV SCH (23:19)
[2017-10-13] MEDS: PROPOFOL 100 ML IV PRN (23:57)
[2017-10-14] MEDS: SODIUM CHLORIDE 0.9% 1,000 ML IV SCH ×2 (01:13→10:42)
[2017-10-14] MEDS: ALBUTEROL/IPRATROPIUM 2.5MG/0.5MG, 3 ML INLINE SCH ×6 (02:52→22:51)
[2017-10-14 04:47] LABS: ALANINE AMINOTRANSFERASE 32 U/L (12-78); ALBUMIN 2.5 g/dL (3.4-5.0); ANION GAP 9 mmol/L (5-15); CALCIUM 8.6 mg/dL (8.5-10.1); CHLORIDE 107 mmol/L (98-107); CREATININE 0.32 mg/dL (0.55-1.02)
[2017-10-14 04:49] LABS: ALKALINE PHOSPHATASE 69 U/L (45-117); BILIRUBIN,TOTAL 1.1 mg/dL (0.2-1.0); TOTAL PROTEIN 5.7 g/dL (6.4-8.2)
[2017-10-14] MEDS: D5%-0.45NACL+KCL 40MEQ 1,000 ML IV SCH (04:50)
[2017-10-14] MEDS: FENTANYL PF 100 MCG/2ML IVPush PRN (04:57)
[2017-10-14 05:00] VITALS: BP 133/88
[2017-10-14] MEDS: PROPOFOL 100 ML IV PRN ×4 (05:17→19:09)
[2017-10-14] MEDS ORDERED: hydrALAzine 20 MG/ML, 1ML IV PRN (05:30)
[2017-10-14 05:33] LABS: MEAN CORPUSCULAR HEMOGLOBIN 25.2 pg (27.0-34.8); MEAN CORPUSCULAR VOLUME 81.3 fL (80-100); PLATELET COUNT 216 x10^3/uL (130-400); RED BLOOD COUNT 4.69 x10^6/uL (3.82-5.3)
[2017-10-14] MEDS: ASPIRIN 81 MG TABLET EC PO SCH (05:55)
[2017-10-14 06:07] LABS: BASOPHILS # (AUTO) 0.02 x10^3/uL (0-0.1); BASOPHILS % (AUTO) 0 % (0-1); EOSINOPHILS # (AUTO) 0.03 x10^3/uL (0-0.4); EOSINOPHILS % (AUTO) 0 % (1-7); LYMPHOCYTES % (AUTO) 15 % (22-44); MD MORPH REVIEW ONLY; MONOCYTES # (AUTO) 0.68 x10^3/uL (0.2-0.8); MONOCYTES % (AUTO) 9 % (2-9); NEUTROPHILS # (AUTO) 5.91 x10^3/uL (1.8-6.8); NEUTROPHILS % (AUTO) 75 % (42-75)
[2017-10-14 06:08] LABS: ANISOCYTOSIS 1+; MICROCYTOSIS 1+
[2017-10-14 06:09] LABS: <PLATELET ESTIMATE> ADEQUATE; <PLT MORPHOLOGY> NORMAL PLT MORPH; OVALOCYTES 1+; POLYCHROMASIA 1+
[2017-10-14] MEDS: DOCUSATE 50 MG/5 ML, 10ML UDC NG SCH (09:07)
[2017-10-14] MEDS: LACTULOSE 10 GM/15 ML UDC PO SCH ×2 (09:07→20:28)
[2017-10-14] MEDS: METOPROLOL TARTRATE 50 MG TABLET PO SCH ×2 (09:07→20:27)
[2017-10-14] MEDS: MULTIVITAMINS/MINERALS TABLET PO SCH ×2 (09:07→20:27)
[2017-10-14] MEDS: TIMOLOL OPHTH 0.5%, 5ML EACHEYE SCH ×2 (09:27→20:28)
[2017-10-14] MEDS: DORZOLAMIDE OPHTH 2%, 10ML EACHEYE SCH ×2 (09:27→20:28)
[2017-10-14] MEDS ORDERED: MIDAZOLAM 1 MG/ML, 5ML ONE (11:00)
[2017-10-14] MEDS ORDERED: SUCCINYLCHOLINE 20 MG/ML, 10ML ONE (11:00)
[2017-10-14] MEDS ORDERED: PROPOFOL 10 MG/ML, 20ML ONE (11:00)
[2017-10-14] MEDS: FAMOTIDINE 20 MG/2 ML IV SCH (11:17)
[2017-10-14] MEDS: ENOXAPARIN 100 MG/ML SQ SCH (16:15)
[2017-10-14] MEDS: ATORVASTATIN 10 MG TABLET PO SCH (20:26)
[2017-10-14] MEDS: TEMPLATE NON-FORMULARY MED. (Bimatoprost (Lumigan) 1 DROP) EACHEYE SCH (21:00)
[2017-10-15] MEDS: FAMOTIDINE 20 MG/2 ML IV SCH ×3 (00:45→20:29)
[2017-10-15] MEDS: SODIUM CHLORIDE 0.9% 1,000 ML IV SCH ×3 (00:45→22:20)
[2017-10-15] MEDS: PROPOFOL 100 ML IV PRN ×4 (02:05→23:33)
[2017-10-15] MEDS: ALBUTEROL/IPRATROPIUM 2.5MG/0.5MG, 3 ML INLINE SCH ×6 (02:34→21:59)
[2017-10-15 04:00] VITALS: BP 135/89
[2017-10-15 04:40] LABS: ANION GAP 8 mmol/L (5-15); CHLORIDE 105 mmol/L (98-107); CREATININE 0.25 mg/dL (0.55-1.02)
[2017-10-15 04:46] LABS: MEAN CORPUSCULAR HEMOGLOBIN 24.7 pg (27.0-34.8); MEAN CORPUSCULAR HGB CONC 31.5 g/dL (32.4-35.8); MEAN CORPUSCULAR VOLUME 78.4 fL (80-100); PLATELET COUNT 209 x10^3/uL (130-400); RED BLOOD COUNT 4.81 x10^6/uL (3.82-5.3); RED CELL DISTRIBUTION WIDTH 24.4 % (9.6-15.2)
[2017-10-15] MEDS: ENOXAPARIN 100 MG/ML SQ SCH ×2 (05:28→16:34)
[2017-10-15] MEDS: ASPIRIN 81 MG TABLET CHEW PO SCH (05:28)
[2017-10-15 05:45] LABS: BASOPHILS # (AUTO) 0.03 x10^3/uL (0-0.1); BASOPHILS % (AUTO) 0 % (0-1); EOSINOPHILS # (AUTO) 0.13 x10^3/uL (0-0.4); EOSINOPHILS % (AUTO) 2 % (1-7); LYMPHOCYTES # (AUTO) 1.33 x10^3/uL (1-3.4); LYMPHOCYTES % (AUTO) 16 % (22-44); MD SCAN; MONOCYTES # (AUTO) 0.72 x10^3/uL (0.2-0.8); MONOCYTES % (AUTO) 9 % (2-9); NEUTROPHILS # (AUTO) 6.19 x10^3/uL (1.8-6.8); NEUTROPHILS % (AUTO) 74 % (42-75)
[2017-10-15] MEDS ORDERED: SODIUM PHOSPHATE 20 MMOL in SODIUM CHLORIDE 0.9% 500 ML IV ONE (07:30)
[2017-10-15] MEDS ORDERED: MAGNESIUM SULFATE PMX 4GM/100M 100 ML IV ONE (07:30)
[2017-10-15] MEDS: METOPROLOL TARTRATE 50 MG TABLET PO SCH ×2 (09:51→20:29)
[2017-10-15] MEDS: DOCUSATE 50 MG/5 ML, 10ML UDC NG SCH (09:52)
[2017-10-15] MEDS: LACTULOSE 10 GM/15 ML UDC PO SCH ×2 (09:52→20:29)
[2017-10-15] MEDS: MULTIVITAMINS/MINERALS TABLET PO SCH ×2 (09:52→20:29)
[2017-10-15] MEDS: POTASSIUM CHLORIDE 10% 40 MEQ/30 ML UDC PO SCH ×2 (09:52→20:29)
[2017-10-15] MEDS: TIMOLOL OPHTH 0.5%, 5ML EACHEYE SCH ×2 (09:53→20:30)
[2017-10-15] MEDS: DORZOLAMIDE OPHTH 2%, 10ML EACHEYE SCH ×2 (09:53→20:30)
[2017-10-15] MEDS: ASPIRIN 81 MG TABLET EC PO SCH (12:37)
[2017-10-15] MEDS: ATORVASTATIN 40 MG TABLET PO SCH (20:29)
[2017-10-15] MEDS: TEMPLATE NON-FORMULARY MED. (Bimatoprost (Lumigan) 1 DROP) EACHEYE SCH (20:30)
[2017-10-16] MEDS: ALBUTEROL/IPRATROPIUM 2.5MG/0.5MG, 3 ML INLINE SCH ×6 (02:57→21:32)
[2017-10-16 04:00] VITALS: BP 106/69
[2017-10-16] MEDS: ENOXAPARIN 100 MG/ML SQ SCH ×2 (04:04→16:38)
[2017-10-16 04:25] LABS: MEAN CORPUSCULAR HEMOGLOBIN 25.1 pg (27.0-34.8); MEAN CORPUSCULAR HGB CONC 31.9 g/dL (32.4-35.8); MEAN CORPUSCULAR VOLUME 78.6 fL (80-100); MEAN PLATELET VOLUME 8.7 fL (7.4-10.4); PLATELET COUNT 198 x10^3/uL (130-400); RED BLOOD COUNT 4.89 x10^6/uL (3.82-5.3)
[2017-10-16 04:26] LABS: RED CELL DISTRIBUTION WIDTH 24.8 % (9.6-15.2)
[2017-10-16 04:30] LABS: ANION GAP 6 mmol/L (5-15); CALCIUM 7.8 mg/dL (8.5-10.1); CHLORIDE 107 mmol/L (98-107); CREATININE 0.34 mg/dL (0.55-1.02); TRIGLYCERIDES 92 mg/dL (50-200)
[2017-10-16 04:51] LABS: BASOPHILS # (AUTO) 0.02 x10^3/uL (0-0.1); BASOPHILS % (AUTO) 0 % (0-1); EOSINOPHILS # (AUTO) 0.14 x10^3/uL (0-0.4); EOSINOPHILS % (AUTO) 2 % (1-7); LYMPHOCYTES # (AUTO) 1.28 x10^3/uL (1-3.4); LYMPHOCYTES % (AUTO) 15 % (22-44); MD SCAN; MONOCYTES # (AUTO) 0.67 x10^3/uL (0.2-0.8); MONOCYTES % (AUTO) 8 % (2-9); NEUTROPHILS # (AUTO) 6.42 x10^3/uL (1.8-6.8); NEUTROPHILS % (AUTO) 75 % (42-75)
[2017-10-16] MEDS: ASPIRIN 81 MG TABLET EC PO SCH (05:10)
[2017-10-16] MEDS: ASPIRIN 81 MG TABLET CHEW PO SCH (05:24)
[2017-10-16] MEDS: PROPOFOL 100 ML IV PRN ×2 (06:33→19:45)
[2017-10-16] MEDS: TIMOLOL OPHTH 0.5%, 5ML EACHEYE SCH ×2 (09:00→22:45)
[2017-10-16] MEDS: DOCUSATE 50 MG/5 ML, 10ML UDC NG SCH (09:00)
[2017-10-16] MEDS: METOPROLOL TARTRATE 50 MG TABLET PO SCH ×2 (09:00→22:46)
[2017-10-16] MEDS: LACTULOSE 10 GM/15 ML UDC PO SCH ×2 (09:00→22:45)
[2017-10-16] MEDS: DORZOLAMIDE OPHTH 2%, 10ML EACHEYE SCH ×2 (09:00→22:44)
[2017-10-16] MEDS: MULTIVITAMINS/MINERALS TABLET PO SCH ×2 (09:00→21:00)
[2017-10-16] MEDS: SODIUM CHLORIDE 0.9% 1,000 ML IV SCH ×2 (09:00→18:06)
[2017-10-16] MEDS: FAMOTIDINE 20 MG/2 ML IV SCH ×2 (12:39→22:46)
[2017-10-16] MEDS: TEMPLATE NON-FORMULARY MED. (Bimatoprost (Lumigan) 1 DROP) EACHEYE SCH (19:55)
[2017-10-16] MEDS: ATORVASTATIN 40 MG TABLET PO SCH (22:45)
[2017-10-17] MEDS: ALBUTEROL/IPRATROPIUM 2.5MG/0.5MG, 3 ML INLINE SCH (01:27)
[2017-10-17] MEDS: ENOXAPARIN 100 MG/ML SQ SCH ×2 (01:39→16:42)
[2017-10-17 04:10] VITALS: BP 105/71
[2017-10-17 04:42] LABS: MEAN CORPUSCULAR HEMOGLOBIN 25.4 pg (27.0-34.8); MEAN CORPUSCULAR HGB CONC 32.2 g/dL (32.4-35.8); MEAN CORPUSCULAR VOLUME 78.6 fL (80-100); MEAN PLATELET VOLUME 9.1 fL (7.4-10.4); PLATELET COUNT 169 x10^3/uL (130-400); RED BLOOD COUNT 4.49 x10^6/uL (3.82-5.3); RED CELL DISTRIBUTION WIDTH 25.7 % (9.6-15.2)
[2017-10-17 04:49] LABS: ANION GAP 4 mmol/L (5-15); CALCIUM 7.9 mg/dL (8.5-10.1); CHLORIDE 109 mmol/L (98-107); CREATININE 0.32 mg/dL (0.55-1.02)
[2017-10-17] MEDS: ASPIRIN 81 MG TABLET EC PO SCH (05:08)
[2017-10-17] MEDS: SODIUM CHLORIDE 0.9% 1,000 ML IV SCH ×2 (05:10→14:34)
[2017-10-17] MEDS: ASPIRIN 81 MG TABLET CHEW PO SCH (05:10)
[2017-10-17 05:39] LABS: BASOPHILS # (AUTO) 0.04 x10^3/uL (0-0.1); BASOPHILS % (AUTO) 1 % (0-1); EOSINOPHILS # (AUTO) 0.17 x10^3/uL (0-0.4); EOSINOPHILS % (AUTO) 2 % (1-7); LYMPHOCYTES # (AUTO) 1.58 x10^3/uL (1-3.4); LYMPHOCYTES % (AUTO) 20 % (22-44); MD SCAN; MONOCYTES # (AUTO) 0.74 x10^3/uL (0.2-0.8); MONOCYTES % (AUTO) 9 % (2-9); NEUTROPHILS # (AUTO) 5.56 x10^3/uL (1.8-6.8); NEUTROPHILS % (AUTO) 69 % (42-75)
[2017-10-17] MEDS: DOCUSATE 50 MG/5 ML, 10ML UDC NG SCH (09:24)
[2017-10-17] MEDS: METOPROLOL TARTRATE 50 MG TABLET PO SCH (09:25)
[2017-10-17] MEDS: DORZOLAMIDE OPHTH 2%, 10ML EACHEYE SCH (09:28)
[2017-10-17] MEDS: LACTULOSE 10 GM/15 ML UDC PO SCH (09:28)
[2017-10-17] MEDS: TIMOLOL OPHTH 0.5%, 5ML EACHEYE SCH (09:28)
[2017-10-17] MEDS: FENTANYL PF 100 MCG/2ML IVPush PRN (09:47)
[2017-10-17] MEDS: PROPOFOL 100 ML IV PRN (09:55)
[2017-10-17] MEDS: MULTIVITAMINS/MINERALS TABLET PO SCH (10:52)
[2017-10-17] MEDS: FAMOTIDINE 20 MG/2 ML IV SCH (11:31)
[2017-10-17] MEDS ORDERED: morphine SULFATE 10 MG/ML, 1ML IVPush PRN ×2 (17:30)
[2017-10-17] MEDS ORDERED: LORazepam 2 MG/ML, 1ML IVPush PRN ×2 (17:30)
[2017-10-17] MEDS ORDERED: ATROPINE OPHTH SOLN 1%, 5ML PO PRN (17:30)
== END 2017-10-17 23:24 | disposition expired | DRG 208 ==
LOC: ED 14:46 → EDIP 14:51 → ED 15:06 → 5SO 15:46 → CCU 10-13 15:46
PROVIDERS: ADMIT Internal Medicine; ATTEND Internal Medicine
PROC: 0T9B70Z Drainage of Bladder with Drainage Device, Via Natural or Artificial Opening (ICD-10-PCS; 2017-10-11)
PROC: 5A1945Z Respiratory Ventilation, 24-96 Consecutive Hours (ICD-10-PCS; principal; 2017-10-13)
PROC: 0BH17EZ Insertion of Endotracheal Airway into Trachea, Via Natural or Artificial Opening (ICD-10-PCS; 2017-10-13)
PROC: 5A09357 Assistance with Respiratory Ventilation, Less than 24 Consecutive Hours, Continuous Positive Airway Pressure (ICD-10-PCS; 2017-10-13)
DX: J96.21 Acute and chronic respiratory failure with hypoxia (principal); I63.9 Cerebral infarction, unspecified; I21.4 Non-ST elevation (NSTEMI) myocardial infarction; G93.41 Metabolic encephalopathy; E44.0 Moderate protein-calorie malnutrition; E87.2 Acidosis; D68.69 Other thrombophilia; I48.2 Chronic atrial fibrillation; I50.32 Chronic diastolic (congestive) heart failure; J98.11 Atelectasis; N39.0 Urinary tract infection, site not specified; E66.9 Obesity, unspecified; E05.20 Thyrotoxicosis with toxic multinodular goiter without thyrotoxic crisis or storm; I45.10 Unspecified right bundle-branch block; J96.10 Chronic respiratory failure, unspecified whether with hypoxia or hypercapnia; Z68.37 Body mass index [BMI] 37.0-37.9, adult; H40.9 Unspecified glaucoma; I25.10 Atherosclerotic heart disease of native coronary artery without angina pectoris; K21.9 Gastro-esophageal reflux disease without esophagitis; K72.90 Hepatic failure, unspecified without coma; J96.22 Acute and chronic respiratory failure with hypercapnia; K80.20 Calculus of gallbladder without cholecystitis without obstruction; M19.90 Unspecified osteoarthritis, unspecified site; R56.9 Unspecified convulsions; R62.7 Adult failure to thrive; Z51.5 Encounter for palliative care; Z66 Do not resuscitate; R73.9 Hyperglycemia, unspecified; Z78.1 Physical restraint status; Z79.01 Long term (current) use of anticoagulants; Z79.82 Long term (current) use of aspirin; Z87.442 Personal history of urinary calculi; Z87.891 Personal history of nicotine dependence; Z68.38 Body mass index [BMI] 38.0-38.9, adult; Z98.42 Cataract extraction status, left eye; Z98.41 Cataract extraction status, right eye; Z88.5 Allergy status to narcotic agent; Z88.0 Allergy status to penicillin
CPT/HCPCS: 36415; 36600; 70450; 70551; 71045; 71275; 80048; 80053; 81001; 82040; 82140; 82607; 82746; 82803; 83605; 83735; 84100; 84439; 84443; 84478; 84481; 84484; 85025; 85651; 86140; 87040; 87070; 87081; 87086; 87205; 93005; 94002; 94003; 94640; 94660; 95819; 96374; C8929; J0456; J0696; J1650; J1953; J2250; J2704; J3010; J7620; Q9967; J0330; J1940; J2060; J2270; J3475; J3480; J7030; J7040; J7050; S0028